=== PATIENT | female | born 1975 | race Caucasian/White ===

== ENCOUNTER 2018-06-14 05:20 | Day surgery (SDC) | payer OTHER | END 2018-06-14 14:55 | disposition home or self-care (01) | LOC: CIR.AMB 05:20 | PROVIDERS: Plastic Surgery | PROC: 0HBV0ZZ Excision of Bilateral Breast, Open Approach (ICD-10-PCS; principal; 2018-06-14 11:45) | DX: N62 Hypertrophy of breast (principal) ==